=== PATIENT | male | born 1945 | race Caucasian/White ===

== ENCOUNTER 2018-11-24 11:56 | Day surgery (SDC) | payer OTHER ==
[2018-11-24 13:58] LABS: HEMATOCRIT 45.6 % (35.4-49); HEMOGLOBIN 15.2 GM/dL (11.7-16.9); MCH 30.7 pg (25.7-33.7); MCHC 33.3 g/dl (32.0-35.9); MEAN CELL VOLUME 92.1 fl (80-96); MEAN PLT VOLUME 7.8 fl (7.5-11.1); PLATELET COUNT 239 K/MM3 (134-434); RBC 4.95 M/mm3 (4.00-5.60); RDW 12.9 % (11.9-15.9); WHITE BLOOD COUNT 6.8 K/mm3 (4.0-10.0)
[2018-11-24 14:14] LABS: INR 1.23 (0.83-1.09); PROTHROMBIN TIME (PATIENT) 14.5 SEC (9.7-13.0)
[2018-11-24 14:16] LABS: ACTIVATED PTT 36.4 SECONDS (25.2-36.5)
[2018-11-24 14:29] LABS: ALBUMIN 3.8 g/dl (3.4-5.0); BILIRUBIN,DIRECT 0.2 mg/dL (0.0-0.2); BILIRUBIN,TOTAL 0.5 mg/dL (0.2-1); CREATININE 1.2 mg/dL (0.55-1.3); POTASSIUM 4.6 mmol/L (3.5-5.1); TOT PROT 7.3 g/dl (6.4-8.2)
--- NOTE | 2018-11-24 14:58 | EKG ---
Test Reason : Blood Pressure : / mmHG Vent. Rate : 068 BPM Atrial Rate : 068 BPM P-R Int : 136 ms QRS Dur : 070 ms QT Int : 416 ms P-R-T Axes : 004 048 067 degrees QTc Int : 442 ms NORMAL SINUS RHYTHM WITH SINUS ARRHYTHMIA NORMAL ECG Confirmed by DAYDAY BROWN MD ([id number]) on 11/24/2018 2:57:59 PM Referred By: Jon Brown Confirmed By:DAYDAY BROWN MD
== END 2018-11-24 13:04 | disposition home or self-care (01) ==
LOC: JASU-ENDO 11:56
PROVIDERS: ATTEND Internal Medicine Cardiovascular Disease
DX: Z53.8 Procedure and treatment not carried out for other reasons (principal)
CPT/HCPCS: 36415; 80048; 80061; 80076; 83721; 84443; 85027; 85610; 85730; 93005; 93010

== ENCOUNTER 2020-12-24 05:01 | Day surgery (SDC) | payer OTHER ==
[2020-12-23 13:45] VITALS: BMI 31.4
[2020-12-24 12:21] VITALS: TEMP 98
[2020-12-24 13:29] VITALS: BP 128/61; PULSE 69
== END 2020-12-24 13:12 | disposition home or self-care (01) ==
LOC: JASU-ENDO 05:01
PROVIDERS: ATTEND Internal Medicine Cardiovascular Disease
PROC: 5A2204Z Restoration of Cardiac Rhythm, Single (ICD-10-PCS; principal; 2020-12-24 12:00)
DX: I48.19 Other persistent atrial fibrillation (principal)
CPT/HCPCS: 92960